=== PATIENT | female | born 1990 | race Caucasian/White ===

== ENCOUNTER → 2020-01-01 | Outpatient (CLI) | payer OTHER | END | disposition home or self-care (01) | LOC: CFH 13:49 | PROVIDERS: ATTEND Family Medicine | DX: N63.10 Unspecified lump in the right breast, unspecified quadrant (principal); N64.89 Other specified disorders of breast | CPT/HCPCS: 76642; 77066; G0279 ==

== ENCOUNTER 2020-02-16 15:43 | Emergency (ER) | payer OTHER ==
[~2020-02-16] VITALS: Ht 165.1 cm; Wt 113.6 kg
[2020-02-16 15:46] VITALS: BP 130/74
== END 2020-02-16 17:19 | disposition home or self-care (01) ==
LOC: ED 16:56
DX: J20.8 Acute bronchitis due to other specified organisms (principal); F17.200 Nicotine dependence, unspecified, uncomplicated; B97.89 Other viral agents as the cause of diseases classified elsewhere
CPT/HCPCS: 99283

== ENCOUNTER → 2020-04-17 | Outpatient (CLI) | payer OTHER | END | disposition home or self-care (01) | LOC: RAD 08:50 | PROVIDERS: ATTEND Family Medicine | DX: R05 Cough (principal) | CPT/HCPCS: 71046 ==

== ENCOUNTER 2021-05-04 13:30 | Outpatient (CLI) | payer OTHER ==
[2021-05-04] MEDS ORDERED: OMNIPAQUE 350 MG/ML, 100ML BOTTLE ONE (15:34)
== END 2021-05-04 23:59 | disposition home or self-care (01) ==
LOC: CFH 13:30
PROVIDERS: ATTEND Nurse Practitioner Family
DX: R11.2 Nausea with vomiting, unspecified (principal); R19.7 Diarrhea, unspecified; R10.33 Periumbilical pain; R63.4 Abnormal weight loss; R49.8 Other voice and resonance disorders; Z90.49 Acquired absence of other specified parts of digestive tract
CPT/HCPCS: 74177; Q9967

== ENCOUNTER 2021-05-24 20:14 | Emergency (ER) | payer OTHER ==
[~2021-05-24] VITALS: Ht 152.4 cm; Wt 53.5 kg
[2021-05-24 20:25] VITALS: BP 96/78
[2021-05-24] MEDS ORDERED: DEXAMETHASONE 4 MG TABLET ONE (21:37)
[2021-05-24] MEDS ORDERED: ACETAMINOPHEN 500 MG TABLET ONE (21:38)
[2021-05-24] MEDS ORDERED: DEXAMETHASONE 4 MG TABLET PO ONE (22:00)
[2021-05-24] MEDS ORDERED: ACETAMINOPHEN 500 MG TABLET PO ONE (22:00)
[2021-05-24] MEDS ORDERED: AMOXICILLIN 500 MG CAPSULE ONE (22:15)
[2021-05-24] MEDS ORDERED: AMOXICILLIN 500 MG CAPSULE PO ONE (22:30)
== END 2021-05-24 22:24 | disposition home or self-care (01) ==
LOC: ED 20:44
DX: J02.0 Streptococcal pharyngitis (principal); F17.210 Nicotine dependence, cigarettes, uncomplicated
CPT/HCPCS: 87880; 99406

== ENCOUNTER 2021-06-25 09:44 | Outpatient (CLI) | payer OTHER | END 2021-06-25 23:59 | disposition home or self-care (01) | LOC: CFH 09:44 | PROVIDERS: ATTEND Specialist | DX: N64.3 Galactorrhea not associated with childbirth (principal) | CPT/HCPCS: 76642; 77062; 77063; 77066; G0279 ==